=== PATIENT | female | born 1940 | race Caucasian/White ===

== ENCOUNTER 2018-06-22 07:19 | Day surgery (SDC) | payer MEDICARE, OTHER ==
[~2018-06-22] VITALS: Ht 175.3 cm; Wt 75.8 kg
--- NOTE | ~2018-06-22 | OP ---
PATIENT NAME: ROGERIO CLEMENTE MEDICAL RECORD: [id number] :42 LOCATION:[facility] ADMISSION DATE: SURGEON: ALISHA SOLIZ MD DATE OF OPERATION: 06/22/2018 SURGEON: Alisha Soliz MD PREOPERATIVE DIAGNOSES: Lumbar spinal stenosis with foraminal stenosis, right L3-L4. POSTOPERATIVE DIAGNOSES: Lumbar spinal stenosis with foraminal stenosis, right L3-L4. PROCEDURES: Lumbar laminotomy, medial facetectomy and foraminotomy, L3-L4, on the right with METRx retractor. DESCRIPTION AND TECHNIQUE: After induction of general endotracheal anesthesia, the patient was rolled prone on the Mc frame. Lumbar spine was prepped and draped in the usual sterile fashion. Fluoroscopic x-ray and spinal needle localized the L3-L4 interspace on the right side. A series of dilators was used to advance the METRx retractor to the L3-L4 interspace on the right. The level was confirmed with fluoroscopic x-ray. A Midas Dmitriy drill and microscope were used to perform a laminotomy, foraminotomy, and medial facetectomy at L3-L4 on the right. Hypertrophied ligamentum flavum was removed with Cloward rongeurs. Following this, the L3 and L4 nerve roots were decompressed well. Meticulous hemostasis was maintained throughout the wound. The wound was irrigated with copious amounts of Ancef irrigant solution. The retractors were removed. The fascia was closed with 2-0 Vicryl suture. The subdermal layer was closed with 3-0 Monocryl suture. The skin was closed with judson. A sterile dressing was applied to the wound. The patient was awakened in good condition, taken to recovery. All counts were reported as correct. Estimated blood loss was minimal. TRANSINT:[id number] Voice Confirmation ID: [id number] DOCUMENT ID: [id number] ALISHA SOLIZ MD CC: [id number] DICTATION DATE: 06/24/18 1043 ALLOCATIONS CLERK: 06/24/18 1232 [facility] 06/22/18 [place] [id number]
[~2018-06-22 07:19] MED LIST: ACETAMINOPHEN500 M1 PO; AMBIEN10 MG PO; COZAAR25 MG PO; FLOVENT HFA 11012 GM INH; FOSINOPRIL-HCT1 EAC1 PO; LIPITOR20 MG PO; PROTONIX40 MG PO; TENORMIN25 MG PO; XANAX0.25 MG PO; ZOLOFT50 MG PO
[2018-06-22 07:40] LABS: HEMATOCRIT 38.5 % (36.0-48.0); HEMOGLOBIN 13.2 g/dL (12-16); MCH 32.9 pg (26.0-34.0); MCHC 34.3 g/dL (31.0-37.0); MEAN PLATELET VOLUME 11.4 fL (7.4-10.4); RBC 4.01 10x6/uL (4.00-5.40); RDW 12.2 % (11.5-14.5); WBC 10.8 10x3/uL (4.8-10.8)
[2018-06-22 07:53] LABS: ANION GAP 11.6 mmol/L (8-16); CALCIUM 9.1 mg/dL (8.5-10.1); CARBON DIOXIDE 30.8 mmol/L (21.0-32.0); CREATININE - SERUM 1.1 mg/dL (0.6-1.3); POTASSIUM - SERUM 3.4 mmol/L (3.5-5.1)
[2018-06-22 08:33] VITALS: BP 130/64; Ht 175.3 cm; Wt 75.8 kg
--- NOTE | 2018-06-22 14:23 | NUR ---
1345-RECD FROM PACU. ALERT AND TALKING. O2 ON AT 2L PER NC. DENIES PAIN. LUMBAR DRESSING DRY AND INTACT. 1415-TOLERATES LIQUIDS WITHOUT NAUSEA, IVF CONTINUE.
--- NOTE | 2018-06-22 15:00 | NUR ---
PATIENT AMBULATES TO BATHROOM AND VOIDS LARGE AMOUNT IN TOILET, AMBULATES WITHOUT DIFFICULTY, PATIENT EXPRESSES HAPPINESS ABOUT BEING ABLE TO MOVE BETTER THAN BEFORE SURGERY AND NOT BEING IN MUCH PAIN. 1506 SITTING ON SIDE OF BED, RIGHT HAND PIV DC'D WITH TIP INTACT. PATIENT BEGINS COMPLAINING OF NAUSEA IMMEDIATELY AFTER IV DC'D. 1518 ZOFRAN ODT GIVEN PO. PATIENT CONTINUES TO FEEL NAUSEATED BUT NOT VOMITING.
--- NOTE | 2018-06-22 15:50 | NUR ---
DR TALAVERA CONTACTED ABOUT PATIENT'S NAUSEA. PATIENT HAS NOW VOMITED AND STILL FEELS NAUSEATED. ORDER RECEIVED FOR PHENERGAN 1605 PHENERGAN IM GIVEN PER EMAR 1620 PATIENT REPORTS FEELING LESS NAUSEATED, SIPPING ON WATER, WANTS TO GO HOME. NO CHANGE IN LUMBAR DRESSING: C/D/I. PATIENT AMBULATES A FEW STEPS WITHOUT UNSTEADINESS. DISCHARGED HOME VIA WHEELCHAIR TO PRIVATE VEHICLE WITH DAUGHTER
--- NOTE | 2018-06-22 15:54 | NUR ---
DR TALAVERA CONTACTED ABOUT PATIENT'S CONTINUED NAUSEA AND NOW VOMITING. ORDER FOR PHENERGAN RECEIVED
--- NOTE | 2018-06-22 16:20 | NUR ---
PATIENT STATES NAUSEA IS IMPROVED, SIPPING WATER WITH NO VOMITING NOW, DISCHARGED HOME VIA WHEELCHAIR TO PRIVATE VEHICLE WITH DAUGHTER
== END 2018-06-22 16:20 | disposition home or self-care (01) ==
LOC: D.OPS 07:19 → D.PAN 09:30 → D.OPS 11:15 → D.PAN 11:15 → D.OPS 16:20
PROVIDERS: Anesthesiology; ATTEND Neurological Surgery
DX: M48.061 Spinal stenosis, lumbar region without neurogenic claudication (principal); Z01.812 Encounter for preprocedural laboratory examination